=== PATIENT | male | born 1975 | race Hispanic/Latino ===

== ENCOUNTER 2020-11-06 21:44 | Emergency (ER) | payer BC, OTHER ==
[~2020-11-06] VITALS: Ht 170.2 cm; Wt 68.0 kg
== END 2020-11-07 01:27 | disposition expired ==
LOC: ED 21:44
PROC: 0BH17EZ Insertion of Endotracheal Airway into Trachea, Via Natural or Artificial Opening (ICD-10-PCS; principal; 2020-11-06)
PROC: 5A12012 Performance of Cardiac Output, Single, Manual (ICD-10-PCS; 2020-11-06)
DX: I46.9 Cardiac arrest, cause unspecified (principal)
CPT/HCPCS: 31500; 92950; 96374; 96375; 96376; 99285; 99292; J0171; J3490